=== PATIENT | female | born 1945 | race Caucasian/White ===

== ENCOUNTER 2019-02-12 13:57 | Emergency (ER) | payer BC, OTHER ==
[~2019-02-12] VITALS: Ht 157.5 cm; Wt 54.4 kg
[2019-02-12 13:57] VITALS: BP_SYST 161
[~2019-02-12 13:57] MED LIST: ACET500C43 PO; ALPHAGAN1 RIGHTEYE; AZOEYE; TIMO5DRO15 RIGHTEYE; [UNRECOGNIZED DRUG - CODE] RIGHTEYE
--- NOTE | 2019-02-12 13:58 | NUR ---
BROUGHT IN BY [facility], PLACED IN BED #8 AND TRIAGED. REPORT GIVEN TO MICHELLE
--- NOTE | 2019-02-12 14:28 | NUR ---
Pt AAOx4 presents to ED c/o intermittent 8/10 pain to R flank s/p trip and fall x 2 days ago. Pt has been taking aleve with mild relief. Skin dry and warm, breathing even and unlabored. Pt states she thought that the pain would subside by now, but it has gotten progressively worse so much so that she is unable to walk. No other injuries/complaints per pt/noted. at bedside. Will continue to monitor.
--- NOTE | 2019-02-12 14:41 | NUR ---
LORY Cowart at bedside examining patient.
[2019-02-12] MEDS ORDERED: HYDROcodone/ACETAMIN 5-325 MG TAB (NORCO/ VICODIN) PO ONE (14:45)
[2019-02-12] MEDS ORDERED: CYCLOBENZAPRINE HCL 10 MG TABLET (FLEXERIL) PO ONE (15:15)
[2019-02-12 15:51] VITALS: BP_SYST 149
--- NOTE | 2019-02-12 15:51 | NUR ---
Patient given written and verbal discharge instructions and verbalizes understanding. ER MD Cowart discussed with patient the results and treatment provided. Patient in stable condition. ID arm band removed. Rx of Flexeril [place] given. Patient educated on pain management and to follow up with PMD. Pain Scale 0. Opportunity for questions provided and answered. Medication side effect fact sheet provided.
--- NOTE | 2019-02-13 08:27 | NUR ---
RECEIVED DISCREPANCY FROM DR CORDERO, CALL PLACED TO PT BY DR ENRIQUEZ, MESSAGE LEFT AT GIVEN PHONE NUMBER
== END 2019-02-12 15:51 | disposition home or self-care (01) ==
LOC: SED 13:57
DX: S39.012A Strain of muscle, fascia and tendon of lower back, initial encounter (principal); Z79.899 Other long term (current) drug therapy; W18.39XA Other fall on same level, initial encounter; Y93.89 Activity, other specified; Y92.89 Other specified places as the place of occurrence of the external cause; Y99.8 Other external cause status
CPT/HCPCS: 72100-TC; 72170-TC; 99283

== ENCOUNTER 2019-09-12 00:45 | Inpatient (IN) | payer OTHER ==
[~2019-09-12] VITALS: Ht 157.5 cm; Wt 49.4 kg
[2019-09-12 00:48] VITALS: BP_SYST 175
[2019-09-12] MEDS ORDERED: MORPHINE 4 MG/ML INJ. SYRINGE IM ONE (01:30)
[2019-09-12] MEDS ORDERED: ASPI-1077 PO (05:29)
[2019-09-12] MEDS ORDERED: cloNIDine HCL 0.1 MG TABLET PO ONE (06:30)
[2019-09-12] MEDS ORDERED: ACETAMINOPHEN 325 MG TABLET PO PRN (06:45)
[2019-09-12] MEDS ORDERED: hydrALAZINE HCL 10 MG TABLET PO PRN (06:45)
[2019-09-12] MEDS ORDERED: ALBUTEROL SULFATE 0.083% 2.5 MG/3 ML VIAL.NEB INH PRN (06:45)
[2019-09-12] MEDS ORDERED: ONDANSETRON HCL 4 MG/2 ML VIAL IVP PRN (06:45)
[2019-09-12] MEDS ORDERED: hydrALAZINE HCL 20 MG/ML VIAL IVP ONE (06:45)
[2019-09-12 07:35] LABS: BASOPHILS # (AUTO) 0.1 K/uL (0.0-0.2); BASOPHILS % (AUTO) 1.1 % (0.0-2.0); EOSINOPHILS # (AUTO) 0.1 K/uL (0.0-0.4); HEMATOCRIT 39.6 % (36-48); HEMOGLOBIN 13.3 g/dL (12.0-16.0); LYMPHOCYTES # (AUTO) 1.4 K/uL (1.0-5.5); LYMPHOCYTES % (AUTO) 14.7 % (20.5-51.5); MEAN CORPUSCULAR HEMOGLOBIN 35 pg (27-31); MEAN CORPUSCULAR HGB CONC 34 % (32-36); MEAN CORPUSCULAR VOLUME 104 fL (79.0-98.0); MONOCYTES # (AUTO) 0.9 K/uL (0.0-1.0); MONOCYTES % (AUTO) 9.3 % (1.7-9.3); NEUTROPHILS % (AUTO) 73.9 % (40.0-70.0); PLATELET COUNT (AUTO) 276 K/uL (130-430); RED BLOOD CELL COUNT(AUTO) 3.83 MIL/uL (4.2-6.2); RED CELL DISTRIBUTION WIDTH 15.6 % (9.0-15.0); WHITE BLOOD COUNT (AUTO) 9.4 K/uL (4.8-10.8)
[2019-09-12 07:51] LABS: PROTHROMBIN TIME 9.9 SECS (9.5-12.5)
[2019-09-12 07:54] LABS: ALANINE AMINOTRANSFERASE 14 U/L (12-78); ALBUMIN 2.7 g/dL (3.4-4.8); ANION GAP 14 (5-15); ASPARTATE AMINOTRANSFERASE 24 U/L (10-37); CALCIUM 8.7 mg/dL (8.4-11.0); CHLORIDE 104 mmol/L (98-107); CREATININE 0.62 mg/dL (0.55-1.30); GLUCOSE 95 mg/dL (70-99); POTASSIUM 3.8 mmol/L (3.5-5.1); SODIUM SERUM 138 mmol/L (136-145); TOTAL BILIRUBIN 0.5 mg/dL (0.0-1.0); UREA NITROGEN, BLOOD 25 mg/dL (8-21)
[2019-09-12 08:00] VITALS: BP_SYST 133
[2019-09-12] MEDS: amLODIPine BESYLATE 10 MG TABLET PO SCH (09:40)
[2019-09-12 10:20] VITALS: BP_SYST 133
[2019-09-12 12:00] VITALS: BP_SYST 109
[2019-09-12] MEDS: MORPHINE 2 MG/ML INJ. SYRINGE IVP PRN (12:12)
[2019-09-12 16:00] VITALS: BP_SYST 132
[2019-09-12] MEDS: MORPHINE 4 MG/ML INJ. SYRINGE IVP PRN (16:27)
[2019-09-12 20:00] VITALS: BP_SYST 116
[2019-09-13] VITALS (7 sets, daily range): BP systolic 120–147
[2019-09-13] MEDS: MORPHINE 4 MG/ML INJ. SYRINGE IVP PRN ×2 (05:42→19:06)
[2019-09-13] MEDS: amLODIPine BESYLATE 10 MG TABLET PO SCH (09:00)
[2019-09-13] MEDS: MORPHINE 2 MG/ML INJ. SYRINGE IVP PRN (11:47)
[2019-09-14 07:01] LABS: BASOPHILS # (AUTO) 0.1 K/uL (0.0-0.2); BASOPHILS % (AUTO) 0.9 % (0.0-2.0); EOSINOPHILS # (AUTO) 0.4 K/uL (0.0-0.4); EOSINOPHILS % (AUTO) 4.6 % (0.0-4.0); HEMATOCRIT 37.2 % (36-48); HEMOGLOBIN 12.5 g/dL (12.0-16.0); LYMPHOCYTES # (AUTO) 1.4 K/uL (1.0-5.5); LYMPHOCYTES % (AUTO) 17.8 % (20.5-51.5); MEAN CORPUSCULAR HEMOGLOBIN 35 pg (27-31); MEAN CORPUSCULAR HGB CONC 34 % (32-36); MEAN CORPUSCULAR VOLUME 105 fL (79.0-98.0); MONOCYTES # (AUTO) 0.7 K/uL (0.0-1.0); MONOCYTES % (AUTO) 9.4 % (1.7-9.3); NEUTROPHILS # (AUTO) 5.1 K/uL (1.8-7.7); NEUTROPHILS % (AUTO) 67.3 % (40.0-70.0); PLATELET COUNT (AUTO) 256 K/uL (130-430); RED BLOOD CELL COUNT(AUTO) 3.54 MIL/uL (4.2-6.2); RED CELL DISTRIBUTION WIDTH 15.5 % (9.0-15.0); WHITE BLOOD COUNT (AUTO) 7.7 K/uL (4.8-10.8)
[2019-09-14 07:38] LABS: ANION GAP 11 (5-15); CALCIUM 8.7 mg/dL (8.4-11.0); CHLORIDE 102 mmol/L (98-107); CREATININE 0.65 mg/dL (0.55-1.30); GLUCOSE 84 mg/dL (70-99); POTASSIUM 3.9 mmol/L (3.5-5.1); SODIUM SERUM 136 mmol/L (136-145); UREA NITROGEN, BLOOD 21 mg/dL (8-21)
[2019-09-14 08:00] VITALS: BP_SYST 112
[2019-09-14] MEDS: amLODIPine BESYLATE 10 MG TABLET PO SCH (08:28)
[2019-09-14] MEDS: MORPHINE 2 MG/ML INJ. SYRINGE IVP PRN (08:30)
[2019-09-14] MEDS ORDERED: ACETAMINOPHEN 325 MG TABLET PO PRN (11:00)
[2019-09-14] MEDS ORDERED: OXYCODONE/ACETAMINOPHEN 5-325 TABLET PO PRN (11:00)
[2019-09-14] MEDS ORDERED: HYDROcodone/ACETAMIN 5-325 MG TAB (NORCO/ VICODIN) PO PRN (11:00)
[2019-09-14 16:00] VITALS: BP_SYST 130
[2019-09-14 18:14] VITALS: BP_SYST 130
== END 2019-09-14 19:00 | disposition home health service (06) | DRG 552 ==
LOC: SED 00:45 → SMU 05:41
PROVIDERS: ADMIT Internal Medicine Hospice and Palliative Medicine; ATTEND Internal Medicine Hospice and Palliative Medicine
DX: S32.019A Unspecified fracture of first lumbar vertebra, initial encounter for closed fracture (principal); S22.089A Unspecified fracture of T11-T12 vertebra, initial encounter for closed fracture; E44.0 Moderate protein-calorie malnutrition; S32.039A Unspecified fracture of third lumbar vertebra, initial encounter for closed fracture; M81.0 Age-related osteoporosis without current pathological fracture; W01.0XXA Fall on same level from slipping, tripping and stumbling without subsequent striking against object, initial encounter; I10 Essential (primary) hypertension; Y93.89 Activity, other specified; Y92.89 Other specified places as the place of occurrence of the external cause; Y99.8 Other external cause status; Z79.899 Other long term (current) drug therapy; Z79.82 Long term (current) use of aspirin
CPT/HCPCS: 36415; 72110; 72131; 72146; 72148; 80048; 80053; 85025; 85610-TC; 96372; 96374; 97110-GP; 97116-GP; 99285; J0360; J2270; J7030

== ENCOUNTER 2020-11-08 15:48 | Emergency (ER) | payer OTHER ==
[~2020-11-08] VITALS: Ht 157.5 cm; Wt 47.6 kg
[~2020-11-08 15:48] MED LIST changes: -ACET500C43 PO; -ALPHAGAN1 RIGHTEYE; +ASPI-1077 PO; -AZOEYE; -TIMO5DRO15 RIGHTEYE; -[UNRECOGNIZED DRUG - CODE] RIGHTEYE
--- NOTE | 2020-11-08 16:00 | NUR ---
Patient to ER bed 8 to gown for evaluation. Side rails up. Report given to PRISCILLA ROACH.
[2020-11-08 16:08] VITALS: BP_SYST 152
--- NOTE | 2020-11-08 16:14 | NUR ---
ER at bedside examining patient.
--- NOTE | 2020-11-08 16:20 | NUR ---
PT BIB FOR LOWER ABD PAIN X 2 DAYS AGO WHEN SHE HAD FOOD POISONING. PT REPORTS SHE ATE [facility] 2 DAYS AGO AND HAD NAUSEA. DENIES NAUSEA TODAY BUT HAS HAD PAIN. PT IS AMBULATORY, AAOX4, V/S STABLE
--- NOTE | 2020-11-08 16:43 | NUR ---
# 20 gauge angiocath placed to R WRIST. Use of asceptic technique. Opsite placed over site. Blood return noted. Blood for lab drawn from site. Flushed with 10 cc of normal saline. No evidence of infiltration noted. Patient tolerated well.
--- NOTE | 2020-11-08 16:44 | NUR ---
Patient transported to radiology via WC, accompanied by STAFF.
[2020-11-08 16:47] LABS: BASOPHILS # (AUTO) 0.1 K/uL (0.0-0.2); BASOPHILS % (AUTO) 0.3 % (0.0-2.0); EOSINOPHILS % (AUTO) 0.1 % (0.0-4.0); HEMATOCRIT 48.2 % (36-48); HEMOGLOBIN 16.1 g/dL (12.0-16.0); LYMPHOCYTES # (AUTO) 1.1 K/uL (1.0-5.5); LYMPHOCYTES % (AUTO) 6.7 % (20.5-51.5); MEAN CORPUSCULAR HEMOGLOBIN 35 pg (27-31); MEAN CORPUSCULAR HGB CONC 33 % (32-36); MEAN CORPUSCULAR VOLUME 105 fL (79.0-98.0); MONOCYTES # (AUTO) 1.5 K/uL (0.0-1.0); MONOCYTES % (AUTO) 9.6 % (1.7-9.3); NEUTROPHILS # (AUTO) 13.2 K/uL (1.8-7.7); NEUTROPHILS % (AUTO) 83.3 % (40.0-70.0); PLATELET COUNT (AUTO) 150 K/uL (130-430); RED BLOOD CELL COUNT(AUTO) 4.58 MIL/uL (4.2-6.2); RED CELL DISTRIBUTION WIDTH 15.4 % (9.0-15.0); WHITE BLOOD COUNT (AUTO) 15.8 K/uL (4.8-10.8)
--- NOTE | 2020-11-08 16:49 | NUR ---
Returned from radiology, back to [facility].
[2020-11-08 17:10] LABS: INR 1.7 (0.8-1.2); PROTHROMBIN TIME 17.3 SECS (9.5-12.5)
[2020-11-08] MEDS ORDERED: MORPHINE 2 MG/ML INJ. SYRINGE IVP ONE (17:15)
[2020-11-08] MEDS ORDERED: TRAM50TA2 PO (17:43)
[2020-11-08] MEDS ORDERED: AMOX-423 PO (17:45)
--- NOTE | 2020-11-08 18:05 | NUR ---
PT ABLE TO VOID, SPECIMEN COLLECTED AND SENT TO LAB
[2020-11-08 18:15] VITALS: BP_SYST 151
--- NOTE | 2020-11-08 18:15 | NUR ---
Patient given written and verbal discharge instructions and verbalizes understanding. ER MD discussed with patient the results and treatment provided. Patient in stable condition. ID arm band removed. IV catheter removed intact and dressing applied, no active bleeding. Rx of AMOXICILLIN AND TRAMADOL given. Patient educated on pain management and to follow up with PMD. Pain Scale 0/10. Opportunity for questions provided and answered. Medication side effect fact sheet provided.
[2020-11-08 18:31] LABS: ANION GAP 9 (5-15); CALCIUM 8.4 mg/dL (8.4-11.0); CHLORIDE 96 mmol/L (98-107); CREATININE 1.29 mg/dL (0.55-1.30); GLUCOSE 93 mg/dL (70-99); POTASSIUM 3.2 mmol/L (3.5-5.1); SODIUM SERUM 134 mmol/L (136-145); UREA NITROGEN, BLOOD 64 mg/dL (8-21)
[2020-11-08 18:32] LABS: ALANINE AMINOTRANSFERASE 19 U/L (12-78); ALBUMIN 2.8 g/dL (3.4-4.8); AMYLASE 66 U/L (0-100); ASPARTATE AMINOTRANSFERASE 22 U/L (10-37); LIPASE 124 U/L (73-393); TOTAL BILIRUBIN 0.9 mg/dL (0.0-1.0)
[2020-11-08 18:36] LABS: BILIRUBIN,URINE 1+ (NEGATIVE); BLOOD, URINE 2+ (NEGATIVE); CLARITY/URINE SL CLOUDY (CLEAR); COLOR,URINE YELLOW (YELLOW); GLUCOSE,URINE NEGATIVE (NEGATIVE); KETONES,URINE 1+ (NEGATIVE); LEUKOCYTE ESTERASE ,URINE 2+ (NEGATIVE); NITRITE, URINE NEGATIVE (NEGATIVE); PH,URINE 5.5 (5.0-8.0); PROTEIN URINE TRACE (NEGATIVE)
[2020-11-08 19:00] LABS: BACTERIA,URINE None Seen /HPF (None Seen); WBC,URINE >100 /HPF (0-3)
[2020-11-08 19:01] LABS: CALCIUM OXALATE CRYSTALS,UR None Seen /HPF (None Seen); CALCIUM PHOSPHATE CRYSTALS,UR None Seen /HPF (None Seen); TRICHOMONAS,URINE None Seen /HPF (None Seen); YEAST,URINE None Seen /HPF (None Seen)
[2020-11-08 19:03] LABS: C-REACTIVE PROTEIN QUANT 15.8 mg/dL (0-0.5)
== END 2020-11-08 18:15 | disposition home or self-care (01) ==
LOC: SED 15:48
DX: K57.92 Diverticulitis of intestine, part unspecified, without perforation or abscess without bleeding (principal); Z79.899 Other long term (current) drug therapy
CPT/HCPCS: 36415; 74176; 76376; 80053; 81000; 82150; 83605; 83690; 85025; 85610; 85730; 86140; 87086; 96374; 99284; J2270

== ENCOUNTER 2022-01-01 07:23 | Emergency (ER) | payer OTHER ==
[~2022-01-01] VITALS: Ht 157.5 cm; Wt 47.6 kg
[~2022-01-01 07:23] MED LIST changes: +AMOX-423 PO; +TRAM50TA2 PO
[2022-01-01] MEDS ORDERED: ONDANSETRON HCL 4 MG/2 ML VIAL ONE (07:59)
[2022-01-01] MEDS ORDERED: ONDANSETRON HCL 4 MG/2 ML VIAL IVP ONE ×2 (08:00→08:45)
[2022-01-01] MEDS ORDERED: KETOROLAC TROMETHAMINE 30 MG VIAL IVP ONE (08:00)
--- NOTE | 2022-01-01 08:00 | NUR ---
TRANSFERRED TO [facility] WITH RAILS UP. VITAL SIGNS STABLE. PATIENT IS HAVING NAUSEA, VOMITING AND HAS LEFT LOWER FLANK PAIN.
[2022-01-01] MEDS ORDERED: MORPHINE 2 MG/ML INJ. SYRINGE IVP ONE (08:15)
--- NOTE | 2022-01-01 08:30 | NUR ---
DR DUENAS AT BEDSIDE TO ASSESS.
[2022-01-01 08:35] LABS: BASOPHILS % (AUTO) 0.5 % (0.0-2.0); EOSINOPHILS % (AUTO) 0.2 % (0.0-4.0); HEMATOCRIT 43.2 % (36-48); HEMOGLOBIN 14.5 g/dL (12.0-16.0); LYMPHOCYTES # (AUTO) 0.9 K/uL (1.0-5.5); MEAN CORPUSCULAR HEMOGLOBIN 33 pg (27-31); MEAN CORPUSCULAR HGB CONC 33 % (32-36); MEAN CORPUSCULAR VOLUME 97 fL (79.0-98.0); MONOCYTES # (AUTO) 0.8 K/uL (0.0-1.0); MONOCYTES % (AUTO) 9.4 % (1.7-9.3); NEUTROPHILS % (AUTO) 79.9 % (40.0-70.0); PLATELET COUNT (AUTO) 163 K/uL (130-430); RED BLOOD CELL COUNT(AUTO) 4.45 MIL/uL (4.2-6.2); RED CELL DISTRIBUTION WIDTH 15.9 % (9.0-15.0); WHITE BLOOD COUNT (AUTO) 8.7 K/uL (4.8-10.8)
--- NOTE | 2022-01-01 08:40 | NUR ---
ORDERED MEDICATIONS PROVIDED.
[2022-01-01 08:51] LABS: ANION GAP 15 (5-15); CALCIUM 7.9 mg/dL (8.4-11.0); CHLORIDE 94 mmol/L (98-107); CREATININE 0.74 mg/dL (0.55-1.30); GLUCOSE 109 mg/dL (70-99); POTASSIUM 3.4 mmol/L (3.5-5.1); SODIUM SERUM 131 mmol/L (136-145); UREA NITROGEN, BLOOD 14 mg/dL (8-21)
[2022-01-01 09:00] LABS: ALANINE AMINOTRANSFERASE 11 U/L (12-78); ALBUMIN 2.5 g/dL (3.4-4.8); ASPARTATE AMINOTRANSFERASE 38 U/L (10-37); TOTAL BILIRUBIN 0.8 mg/dL (0.0-1.0)
--- NOTE | 2022-01-01 09:50 | NUR ---
FIRST CONTACT WITH PT. PT RESTING COMFORTABLY, DENIES PAIN AT THIS TIME. RESP EVEN AND UNLABORED. SINUS TACH ON THE MONITOR AT 105. VSS. WILL CONT TO MONITOR
--- NOTE | 2022-01-01 10:12 | NUR ---
PT SATS 89-98% ON ROOM AIR, NO RESP DISTRESS. PT PLACED ON 2L NC, SATS IMPROVED TO 96%
[2022-01-01] MEDS ORDERED: iohexoL 350 mgI/mL, 100 ML INFUS..BTL IV ONE (10:17)
--- NOTE | 2022-01-01 10:32 | NUR ---
Per Dr. Nguyen, Called [facility] , Comparator Operator. for admit.
--- NOTE | 2022-01-01 10:57 | NUR ---
calling [facility] "Execive waiting time on hold."
--- NOTE | 2022-01-01 11:11 | NUR ---
Contacted [facility]. for Critical Transfer. Faxed Face Sheet & Immaging report to Maxwell. Maxwell called back laura VILLAREAL to speak w. Dr. Nguyen.
--- NOTE | 2022-01-01 11:13 | NUR ---
PT RESTING COMFORTABLY. DENIES PAIN. VSS. NSR ON THE MONITOR.NO N/V ATTHIS TIME. PT WILL BE TRANSFERRED TO [facility], AWAITING ETA
--- NOTE | 2022-01-01 11:14 | NUR ---
Per. Dr. Nguyen request, called [facility]. Errol Arreola at Transfer Center. Faxed Face Sheet & Immaging results.
--- NOTE | 2022-01-01 11:16 | NUR ---
Maxwell from [facility] called back laura Cage to speak to Dr. Nguyen.
[2022-01-01 11:18] LABS: HEMATOCRIT 42.6 % (36-48); HEMOGLOBIN 14.3 g/dL (12.0-16.0); MEAN CORPUSCULAR HEMOGLOBIN 33 pg (27-31); MEAN CORPUSCULAR HGB CONC 34 % (32-36); MEAN CORPUSCULAR VOLUME 98 fL (79.0-98.0); PLATELET COUNT (AUTO) 158 K/uL (130-430); RED BLOOD CELL COUNT(AUTO) 4.33 MIL/uL (4.2-6.2); RED CELL DISTRIBUTION WIDTH 16.3 % (9.0-15.0); WHITE BLOOD COUNT (AUTO) 8.1 K/uL (4.8-10.8)
--- NOTE | 2022-01-01 11:20 | NUR ---
Called [facility], per Dr. Nguyen's request. Spoke laura Reeves, "ER is at capaciy. Our pt. doesn't meet criteria. All they are accepting is a STEMI, Multi-system trauma, active labor."
--- NOTE | 2022-01-01 11:28 | NUR ---
Called [facility] Transfer center, they are capacity. Unable to accept the transfer.
[2022-01-01 11:30] VITALS: BP_SYST 142
[2022-01-01 11:33] LABS: INR 1.6 (0.8-1.2); PROTHROMBIN TIME 16.1 SECS (9.5-12.5)
--- NOTE | 2022-01-01 11:39 | NUR ---
ERMD AWARE OR TROP [id number]
--- NOTE | 2022-01-01 11:41 | NUR ---
Called [facility] , calling Dr. Diaz. Spoke laura Harris, requesting a peer transfer.
--- NOTE | 2022-01-01 11:48 | NUR ---
Called [facility], they are over saturated.
--- NOTE | 2022-01-01 11:53 | NUR ---
SPOKE WITH [facility] DISSECTION [phone], MD DR. DUENAS SPOKE WITH GORDO ON PHONE AND DETAILS GIVEN.
--- NOTE | 2022-01-01 12:07 | NUR ---
CALLED [facility]
--- NOTE | 2022-01-01 12:45 | NUR ---
Dru from [facility] called back to notify they still havent heard from the acting section chief doctor and stated they also called the 2nd acting section chief doctor regading pt status.
[2022-01-01 14:09] LABS: BILIRUBIN,URINE NEGATIVE (NEGATIVE); BLOOD, URINE 1+ (NEGATIVE); CLARITY/URINE CLEAR (CLEAR); COLOR,URINE YELLOW (YELLOW); GLUCOSE,URINE NEGATIVE (NEGATIVE); KETONES,URINE 2+ (NEGATIVE); LEUKOCYTE ESTERASE ,URINE NEGATIVE (NEGATIVE); NITRITE, URINE POSITIVE (NEGATIVE); PH,URINE 6.5 (5.0-8.0); PROTEIN URINE 2+ (NEGATIVE); UROBILINOGEN,URINE 0.2 (0.2-1.0)
--- NOTE | 2022-01-01 14:15 | NUR ---
PATIENT ACCEPTED TO [facility], PENDING BED PLACEMENT.
--- NOTE | 2022-01-01 14:15 | NUR ---
PCR COLLECTED AND BROUGHT TO LAB
--- NOTE | 2022-01-01 14:15 | NUR ---
TRANSFER INFO [facility] [address] RM: [id number] REPORT #: [phone] ACCEPTING: Dr. Calix WILL CALL FOR TRANSPORT TO [facility]
--- NOTE | 2022-01-01 14:30 | NUR ---
CALLING [facility] FOR TRANSPORT AUTH TO ACCEPTING FACILITY. STATED THEY CAN NOT AUTH TRANSPORT OR TRANSFR TO [place] DUE TO NOT BEING CONTRACTED WITH THE [facility]. STATED TO FAX FACESHEET AND CLINICALS TO [facility] ZIP[facility] MACHINE OPERATOR AND THEY WILL LOOK FOR PLACEMENT ELSEWHERE. DR. DUENAS AWARE AND SPOKE TO LENY. FAX: [phone] #: [phone] SPOKE TO LENY
[2022-01-01 14:44] LABS: BACTERIA,URINE FEW /HPF (None Seen)
[2022-01-01 15:14] VITALS: BP_SYST 118
--- NOTE | 2022-01-01 15:27 | NUR ---
PT BEING TRANSPORTED TO [facility] VIA AIR. REPORT CALLED TO [facility], REPORT GIVEN TO DORIE ROACH. PT GOING TO ROOM 932. QUESTIONS ANSWERED. VSS. ETA 5MINS VIA AIR AT THIS TIME
[2022-01-01] MEDS ORDERED: ESMOLOL HCL/SOD CL 250 ML IV PRN (15:30)
--- NOTE | 2022-01-01 15:40 | NUR ---
[facility] TRANSPORT HERE. ESMOLOL GTT STARTED BY ENGINE ASSEMBLER
== END 2022-01-01 15:40 | disposition short-term general hospital (02) ==
LOC: SED 07:23
DX: I71.3 Abdominal aortic aneurysm, ruptured (principal); I71.01 Dissection of thoracic aorta; R11.0 Nausea; Z79.899 Other long term (current) drug therapy; U07.1 COVID-19; Z20.822 Contact with and (suspected) exposure to COVID-19
CPT/HCPCS: 36415; 71275; 72191; 74175; 74176; 76376; 80053; 81000; 83051; 83605; 84484; 85014; 85025; 85048; 85049; 85610; 85730; 86886; 86900; 86901; 87040; 87086; 87426; 93005; 96374; 96375; 96376; 99291; C9803; J1885; J2270; J2405; Q9967; U0003

== ENCOUNTER 2022-02-09 11:45 | Emergency (ER) | payer OTHER ==
[~2022-02-09] VITALS: Ht 162.6 cm; Wt 52.2 kg
[2022-02-09 11:45] VITALS: BP_SYST 198
--- NOTE | 2022-02-09 11:45 | NUR ---
BROUGHT IN BY [facility], PLACED IN BED #3 AND TRIAGED. REPORT GIVEN TO TARA
--- NOTE | 2022-02-09 11:45 | NUR ---
PT BIBA WITH C/O ABDOMINAL PAIN 01/08. PT HAD BEEN ADMITTED MORE THAN ONE WEEK AGO FOR AORTIC ANEURYSM. PT STATED IN [place] SEVERAL DAYS FOR OBSERVATION BUT NO PROCEDURE WAS DONE. RESP E/U. PT HYPERTENSIVE B/P 198/122. ABDOMEN SOFT, NONTENDER, NONDISTENDED. BOWEL SOUNDS ACTIVE X4. PT HAS NAUSEA AND VOMITING. SIDERAILS UP X2.
--- NOTE | 2022-02-09 12:10 | NUR ---
DR. COY AT BEDSIDE TO ASSESS PT. IV ACCESS 22G TO LFA ESTABLISHED, FLUSHED AND PATENT.
[2022-02-09] MEDS ORDERED: LABETALOL 100 MG/ 20ML VIAL IVP ONE (12:15)
[2022-02-09] MEDS ORDERED: MORPHINE 4 MG INJ. 4 MG/ML VIAL IVP ONE (12:15)
[2022-02-09] MEDS ORDERED: ONDANSETRON HCL 4 MG/2 ML VIAL IVP ONE (12:15)
[2022-02-09 12:45] LABS: BASOPHILS # (AUTO) 0.1 K/uL (0.0-0.2); BASOPHILS % (AUTO) 0.9 % (0.0-2.0); EOSINOPHILS % (AUTO) 0.3 % (0.0-4.0); HEMATOCRIT 39.9 % (36-48); HEMOGLOBIN 13.5 g/dL (12.0-16.0); LYMPHOCYTES # (AUTO) 1.1 K/uL (1.0-5.5); LYMPHOCYTES % (AUTO) 8.3 % (20.5-51.5); MEAN CORPUSCULAR HEMOGLOBIN 33 pg (27-31); MEAN CORPUSCULAR HGB CONC 34 % (32-36); MEAN CORPUSCULAR VOLUME 97 fL (79.0-98.0); MONOCYTES % (AUTO) 7.6 % (1.7-9.3); NEUTROPHILS # (AUTO) 10.9 K/uL (1.8-7.7); NEUTROPHILS % (AUTO) 82.9 % (40.0-70.0); PLATELET COUNT (AUTO) 306 K/uL (130-430); RED BLOOD CELL COUNT(AUTO) 4.14 MIL/uL (4.2-6.2); WHITE BLOOD COUNT (AUTO) 13.2 K/uL (4.8-10.8)
--- NOTE | 2022-02-09 12:46 | NUR ---
LABETALOL IVP 10MG IVP GIVEN OVER 5 MINUTS, MS 4MG IVP GIVEN OVER 5 MIN, ZOFRAN IVP GIVEN. SECOND IV ACCESS OBTAINED TO RFA 20G. FLUSHED AND PATENT, CT CALLED AND MADE AWARE PT NEEDS SCAN. CONTRAST CONSENT SIGNED.
--- NOTE | 2022-02-09 12:52 | NUR ---
SPOKE TO DENISSE IN CT WHO STATED HE WILL COME FOR PT NEXT.
[2022-02-09 12:56] LABS: ANION GAP 9 (5-15); CALCIUM 8.6 mg/dL (8.4-11.0); CHLORIDE 100 mmol/L (98-107); CREATININE 0.64 mg/dL (0.55-1.30); GLUCOSE 106 mg/dL (70-99); POTASSIUM 3.4 mmol/L (3.5-5.1); SODIUM SERUM 134 mmol/L (136-145); UREA NITROGEN, BLOOD 14 mg/dL (8-21)
[2022-02-09 13:02] LABS: ALBUMIN 2.2 g/dL (3.4-4.8); ASPARTATE AMINOTRANSFERASE 27 U/L (10-37); TOTAL BILIRUBIN 0.6 mg/dL (0.0-1.0)
[2022-02-09] MEDS ORDERED: iohexoL 350 mgI/mL, 100 ML INFUS..BTL IV ONE (13:29)
[2022-02-09 13:33] LABS: ALANINE AMINOTRANSFERASE 9 U/L (12-78)
--- NOTE | 2022-02-09 13:51 | NUR ---
CT SCAN WITH CONTRAST OF ABDOMEN COMPLETED.
--- NOTE | 2022-02-09 15:36 | NUR ---
NO ACUTE CHANGES IN CONDITION, PT IN NAD. VSS. PT WITH EYES CLOSED, EASILY AROUSABLE.
[2022-02-09] MEDS: ESMOLOL HCL/SOD CL 250 ML IV PRN ×2 (16:03→18:35)
--- NOTE | 2022-02-09 16:04 | NUR ---
ESMOLOL IV DRIP INITIATED AT 50MCG/KG/MIN. VERIFIED BY SECOND NURSE, IAN ROACH. B/P 160/92.
--- NOTE | 2022-02-09 16:11 | NUR ---
SPOKE TO DR. PICHARDO WHO STATED SHE IS GOING TO D/C THE DRIP DUE TO PT'S BOWELS BEING ISCHEMIC. Addendum: 02/09/22 at 1612 by [email or web address] LABETOLOL DRIP NOT INITIATED.
--- NOTE | 2022-02-09 16:24 | NUR ---
TRANSFER INFORMATION ACCEPTED TO [facility] WE ARE TO ARRANGE TRANSPORTATION ACCEPTING DR LUCILA GODFREY CALL REPORT TO [phone]
--- NOTE | 2022-02-09 16:48 | NUR ---
CALLING [facility] SALESPERSON [employer] TO ASSIST WITH AUTH PROCESS AND TRANSPORT. LEFT VOICEMAIL
--- NOTE | 2022-02-09 16:50 | NUR ---
DR. PICHARDO STATED PLEASE START LABETOLOL DRIP. 50MCG/KG/MIN IVP LABETOLOL GIVEN OVER ONE MINUTE, LABETOLOL DRIP INITIATED AT 50MCG/KG/MIN.
--- NOTE | 2022-02-09 16:52 | NUR ---
REQUESTED CD FROM RADIOLOGY
--- NOTE | 2022-02-09 17:20 | NUR ---
B/P 126/94, LABETOLOL MAINTAINED AT 50MCG/KG/MIN.
--- NOTE | 2022-02-09 17:39 | NUR ---
PER RAUL, PROJECT CONSTRUCTION ASSISTANT MANAGER, CALL HCP STATING I ATTEMPTED TO REACH DR. BUTT AND WAITING FOR HIS CALL BACK, BUT NEED OTHER OPTIONS FOR TRANSPORTING PT TO ACCEPTED HOSPITAL
--- NOTE | 2022-02-09 17:48 | NUR ---
B/P 157/90 (88), HR 65. LABETOLOL TITRATED TO 100MCG/KG/MIN, WILL CONTINUE TO MONITOR AND TITRATE NEEDED.
--- NOTE | 2022-02-09 18:00 | NUR ---
B/P 173/91, HR 62. LABETOLOL INCREASED TO 150MCG/KG/MIN. WILL CONTINUE TO MONITOR AND TITRATE INDICATED.
--- NOTE | 2022-02-09 18:10 | NUR ---
B/P 159/11 (126), HR 61. LABETOLOL DRIP INCREASED TO 200MCG/KG/MIN. WILL CONTINUE TO TITRATE NEEDED.
--- NOTE | 2022-02-09 18:20 | NUR ---
TOD KENDRICK OBTAINED AND TAKEN TO LAB
--- NOTE | 2022-02-09 18:40 | NUR ---
CALLED MERON HENLEY AT [phone] AND GAVE REPORT TO DOC MONGE. ALL QUESTIONS AND CONCERNS ADDRESSED. 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 MARIPOSA VERBALIZED UNDERSTANDING.
--- NOTE | 2022-02-09 18:48 | NUR ---
B/P 150/82, HR 61, LABETOLOL DRIP TITRATED TO 250MCG/KG/MIN. WILL CONTINUE TO MONITOR AND TITRATE NEEDED.
--- NOTE | 2022-02-09 19:04 | NUR ---
DR. PICHARDO MADE AWARE PT HR TRENDING DOWN TO 57-61 BPM, B/P NOW 141/80, DR. PICHARDO STATED OKAY TO INCREASE DRIP RATE. ESMOLOL INCREASED TO 300MCG/KG/MIN.
--- NOTE | 2022-02-09 19:24 | NUR ---
ENDORSED PT TO DOC OROZCO. ALL QUESTIONS AND CONCERNS ADDRESSED.
[2022-02-09 19:40] VITALS: BP_SYST 135
--- NOTE | 2022-02-09 19:41 | NUR ---
REPORT GIVEN TO DOC LIRA FORM [facility]. ALL QUESTIONS AND CONCERNS ADDRESSED.
--- NOTE | 2022-02-09 19:41 | NUR ---
Patient to be transferred to [place]. Is being transferred due to higher level of care. Receiving facility has accepting physician and available space. ER physician has signed transfer form. Patient or responsible democrat has agreed to transfer and signed form. Patient belongings inventoried and will be sent with patient. Copy of nursing notes, lab reports, EKG, Physicians Orders and X-rays to be sent with patient. Report called to Shashi ROACH at receiving facility. Receiving physician is Dr. Azevedo. Fifi Damon has been called for transfer.
== END 2022-02-09 19:40 | disposition short-term general hospital (02) ==
LOC: SED 11:45
DX: U07.1 COVID-19 (principal); R10.32 Left lower quadrant pain; I10 Essential (primary) hypertension; Z79.899 Other long term (current) drug therapy
CPT/HCPCS: 99291; 71275; 96374; 96375; 87426; 80053; 85025; 84484; 36415; 93005; 74175; 99292; 83605; 72191; 76376; Q9967; J2405; J2270; J3490